=== PATIENT | male | born 1975 | race Hispanic/Latino ===

== ENCOUNTER 2022-10-16 16:52 | Emergency (ER) | payer BC, OTHER ==
[2022-10-16] MEDS ORDERED: CEFAZOLIN 2 GM VIAL ONE (17:49)
[2022-10-16] MEDS ORDERED: Ketorolac Tromethamine 30 MG/ML VIAL ONE (17:49)
[2022-10-16] MEDS ORDERED: Boostrix 0.5 ML (Tdap) VIAL (>/=7 yrs of age) ONE (17:49)
== END 2022-10-16 18:45 | disposition home or self-care (01) ==
LOC: ERS 16:52
DX: T20.26XA Burn of second degree of forehead and cheek, initial encounter (principal); F17.210 Nicotine dependence, cigarettes, uncomplicated; T31.0 Burns involving less than 10% of body surface
CPT/HCPCS: 90471; 90715; 96365; 96375; J1885

== ENCOUNTER 2022-11-29 13:22 | Emergency (ER) | payer OTHER, BC ==
[2022-11-29] MEDS ORDERED: Ibuprofen 800 MG TAB ONE (14:12)
[2022-11-29] MEDS ORDERED: Acetaminophen 500 MG TAB ONE (14:12)
== END 2022-11-29 15:52 | disposition home or self-care (01) ==
LOC: ERS 13:22
DX: M54.2 Cervicalgia (principal); F17.210 Nicotine dependence, cigarettes, uncomplicated; V89.2XXA Person injured in unspecified motor-vehicle accident, traffic, initial encounter
CPT/HCPCS: 70450; 72100; 72125